=== PATIENT | female | born 1985 | race African-American/Black ===

== ENCOUNTER → 2020-10-10 | Outpatient (CLI) | payer BC ==
[2020-10-04 12:26] VITALS: BP 163/93
[~2020-10-10] MED LIST: OXYC1TAB15 PO
[2020-10-10 08:16] LABS: BILIRUBIN,URINE NEGATIVE (NEG); CLARITY,URINE CLEAR; COLOR,URINE YELLOW; NITRITE,URINE NEGATIVE (NEG); PROTEIN,URINE 100 mg/dL (NEG-TRACE); UROBILINOGEN,URINE 0.2 mg/dL (0.2 mg/dL)
[2020-10-10 08:19] LABS: CREATININE,RANDOM URINE 76.9 mg/dL (Not Establ.)
--- NOTE | 2020-10-10 08:27 | RAD ---
EXAMINATION: US RENAL BILAT INDICATION: Renal failure. COMPARISON: None TECHNIQUE: Grayscale and limited color Doppler evaluation of the kidneys and bladder was performed. FINDINGS: RIGHT KIDNEY: MEASURES: 9.5 x 5.3 x 5.1 cm PARENCHYMA: Diffuse cortical echogenicity with loss of normal corticomedullary differentiation. No di screte mass identified. COLLECTING SYSTEM: No hydronephrosis. LEFT KIDNEY: MEASURES: 9.9 x 4.3 x 6.9 cm. PARENCHYMA: Diffuse cortical echogenicity with loss of normal corticomedullary differentiation. There is a 2.8 x 2.8 cm avascular hypoechoic well-defined lesion with internal echoes and posterior acoust ic enhancement seen in the midpole. Additional, 0.9 cm simple appearing cyst in the midpole COLLECTING SYSTEM: No hydronephrosis URINARY BLADDER: Unremarkable IMPRESSION: 1. Diffuse bilateral cortical echogenicity with loss of normal corticomedullary differentiation, cons istent with chronic medical renal disease. No hydronephrosis in either kidney. 2. Avascular 2.8 cm hypoechoic left renal lesion with internal echoes and posterior acoustic enhancem ent,, suggesting of a mildly complex cyst. Recommend further evaluation with either CT or MRI renal p rotocol. Electronically signed by: Fab Mauro MD (10/10/2020 8:24 AM) [id number]
[2020-10-10 08:49] LABS: ALBUMIN 3.7 g/dL (3.4-5.0); CALCIUM 8.4 mg/dL (8.5-10.1); CREATININE 4.4 mg/dL (0.6-1.0); GFR 13.7; PHOSPHORUS 5.7 mg/dL (2.6-4.7); POTASSIUM 4.8 mmol/L (3.5-5.1); URIC ACID 6.4 mg/dL (2.6-6.0)
[2020-10-10 08:54] LABS: RBC,URINE OCC /HPF (0-2)
[2020-10-10 08:55] LABS: BACTERIA,URINE FEW /HPF (0-FEW)
[2020-10-10 10:45] LABS: BASO # 0.1 x10^3/uL (0.0-0.2); BASO % 1 % (0-3); EOS # 0.1 x10^3/uL (0.0-0.7); EOS % 2 % (0-3); HEMATOCRIT 23.1 % (36.0-47.0); HEMOGLOBIN 7.1 g/dL (12.0-15.5); LYMPH # 1.5 x10^3/uL (1.0-4.8); LYMPH % 23 % (24-48); MEAN CORPUSCULAR HEMOGLOBIN 19 pg (25-35); MEAN CORPUSCULAR HGB CONC 31 g/dL (31-37); MEAN CORPUSCULAR VOLUME 63 fL (79-100); MONO # 0.5 x10^3/uL (0.0-1.1); MONO % 8 % (0-9); NEUT # 4.3 x10^3/uL (1.8-7.7); NEUT % 67 % (31-73); PLATELET COUNT 455 x10^3/uL (140-400); RED BLOOD COUNT 3.66 x10^6/uL (3.50-5.40); RED CELL DISTRIBUTION WIDTH 27.7 % (11.5-14.5); WHITE BLOOD COUNT 6.5 x10^3/uL (4.0-11.0)
[2020-10-10 13:10] LABS: ANISOCYTOSIS MARKED; HYPOCHROMIA MARKED; MICROCYTOSIS MARKED; PLT ESTIMATE INCREASED (ADEQUATE)
[2020-10-10 21:09] LABS: CREAT RD UR 73.5 mg/dL (Not Estab.); MICROALB RD UR 676.1 ug/mL (Not Estab.)
== END ==
LOC: US 08:41
PROVIDERS: ATTEND Family Medicine
DX: D64.9 Anemia, unspecified (principal); N28.9 Disorder of kidney and ureter, unspecified
CPT/HCPCS: 36415; 76770; 80069; 81001; 82043; 82570; 82728; 83540; 83550; 84156; 84550; 85025; 87086

== ENCOUNTER → 2020-10-28 | Outpatient (CLI) | payer BC ==
[2020-10-04 12:26] VITALS: BP 163/93
[2020-10-28 13:21] LABS: BASO % 1 % (0-3); EOS # 0.1 x10^3/uL (0.0-0.7); EOS % 1 % (0-3); HEMATOCRIT 26.7 % (36.0-47.0); HEMOGLOBIN 8.2 g/dL (12.0-15.5); LYMPH # 1.1 x10^3/uL (1.0-4.8); LYMPH % 15 % (24-48); MEAN CORPUSCULAR HEMOGLOBIN 22 pg (25-35); MEAN CORPUSCULAR HGB CONC 31 g/dL (31-37); MEAN CORPUSCULAR VOLUME 71 fL (79-100); MONO # 0.5 x10^3/uL (0.0-1.1); MONO % 7 % (0-9); NEUT # 5.3 x10^3/uL (1.8-7.7); NEUT % 76 % (31-73); PLATELET COUNT 404 x10^3/uL (140-400); RED BLOOD COUNT 3.78 x10^6/uL (3.50-5.40); RED CELL DISTRIBUTION WIDTH 36.5 % (11.5-14.5); WHITE BLOOD COUNT 6.9 x10^3/uL (4.0-11.0)
[2020-10-28 13:38] LABS: CREATININE 4.2 mg/dL (0.6-1.0); GFR 14.5; POTASSIUM 4.9 mmol/L (3.5-5.1)
[2020-10-28 13:55] LABS: ALBUMIN 3.7 g/dL (3.4-5.0); ALBUMIN/GLOBULIN RATIO 1.1 (1.0-1.7); MAGNESIUM 2.2 mg/dL (1.8-2.4); TOTAL BILIRUBIN 0.3 mg/dL (0.2-1.0); TOTAL PROTEIN 7.2 g/dL (6.4-8.2)
[2020-10-29 14:14] LABS: KAPPA FREE 112.9 mg/L (3.3-19.4); KAPPA LAMBDA RATIO 1.43 (0.26-1.65); LAMBDA FREE 78.7 mg/L (5.7-26.3)
[2020-10-31 15:28] LABS: IMMUNOGLOBULIN A 248 mg/dL (87-352); IMMUNOGLOBULIN G 1261 mg/dL (586-1602); IMMUNOGLOBULIN M 127 mg/dL (26-217)
[2020-10-31 17:09] LABS: ALBUM 3.4 g/dL (2.9-4.4); ALPHA 1 0.2 g/dL (0.0-0.4); ALPHA 2 0.7 g/dL (0.4-1.0); GAMMA 1.4 g/dL (0.4-1.8); PROTEIN TOTAL 6.6 g/dL (6.0-8.5); SPEP AG RATIO 1.1 (0.7-1.7)
[2020-11-01 06:40] LABS: CARDIOLIPIN ANTIBODIES SEE SEPARATE REPORT; LUPUS ANTICOAGULANT SEE SEPARATE REPORT
[2020-11-05 20:09] LABS: METHYLMALONIC ACID 297 nmol/L (0-378)
== END ==
LOC: ONCLAB 12:40
PROVIDERS: ATTEND Internal Medicine Hematology & Oncology
DX: D50.9 Iron deficiency anemia, unspecified (principal); N18.5 Chronic kidney disease, stage 5
CPT/HCPCS: 36415; 80053; 82607; 82668; 82728; 82746; 82784; 83010; 83090; 83520; 83540; 83550; 83615; 83735; 83921; 84165; 85025; 85045; 85610; 86147; 86334

== ENCOUNTER → 2020-11-04 | Outpatient (CLI) | payer BC ==
[2020-10-04 12:26] VITALS: BP 163/93
[2020-11-04 11:07] LABS: BASO % 1 % (0-3); EOS # 0.1 x10^3/uL (0.0-0.7); EOS % 2 % (0-3); HEMATOCRIT 29.7 % (36.0-47.0); HEMOGLOBIN 9.3 g/dL (12.0-15.5); LYMPH % 16 % (24-48); MEAN CORPUSCULAR HEMOGLOBIN 23 pg (25-35); MEAN CORPUSCULAR HGB CONC 31 g/dL (31-37); MEAN CORPUSCULAR VOLUME 74 fL (79-100); MONO # 0.4 x10^3/uL (0.0-1.1); MONO % 6 % (0-9); NEUT # 4.6 x10^3/uL (1.8-7.7); NEUT % 75 % (31-73); PLATELET COUNT 351 x10^3/uL (140-400); RED BLOOD COUNT 3.99 x10^6/uL (3.50-5.40); RED CELL DISTRIBUTION WIDTH 35.7 % (11.5-14.5)
[2020-11-04 12:18] LABS: ANISOCYTOSIS MOD; MICROCYTOSIS SLIGHT; PLT ESTIMATE ADEQUATE (ADEQUATE)
== END ==
LOC: ONCLAB 09:57
PROVIDERS: ATTEND Internal Medicine Hematology & Oncology
DX: N18.5 Chronic kidney disease, stage 5 (principal); E61.1 Iron deficiency; Z87.59 Personal history of other complications of pregnancy, childbirth and the puerperium
CPT/HCPCS: 36415; 85025; 88184; 88185

== ENCOUNTER → 2020-12-02 | Outpatient (CLI) | payer BC ==
[2020-10-04 12:26] VITALS: BP 163/93
[2020-12-02 08:17] LABS: BASO % 1 % (0-3); EOS # 0.1 x10^3/uL (0.0-0.7); EOS % 2 % (0-3); HEMATOCRIT 32.7 % (36.0-47.0); HEMOGLOBIN 10.3 g/dL (12.0-15.5); LYMPH # 1.2 x10^3/uL (1.0-4.8); LYMPH % 24 % (24-48); MEAN CORPUSCULAR HEMOGLOBIN 25 pg (25-35); MEAN CORPUSCULAR HGB CONC 32 g/dL (31-37); MEAN CORPUSCULAR VOLUME 79 fL (79-100); MONO # 0.4 x10^3/uL (0.0-1.1); MONO % 8 % (0-9); NEUT # 3.2 x10^3/uL (1.8-7.7); NEUT % 64 % (31-73); PLATELET COUNT 279 x10^3/uL (140-400); RED BLOOD COUNT 4.14 x10^6/uL (3.50-5.40); RED CELL DISTRIBUTION WIDTH 27.1 % (11.5-14.5)
[2020-12-02 11:02] LABS: ANISOCYTOSIS MOD; PLT ESTIMATE ADEQUATE (ADEQUATE)
[2020-12-02 11:03] LABS: OVALOCYTES FEW; POLYCHROMASIA SLIGHT; TARGET CELLS OCC; TEAR DROP CELLS FEW
== END ==
LOC: ONCLAB 07:56
PROVIDERS: ATTEND Internal Medicine Hematology & Oncology
DX: D64.9 Anemia, unspecified (principal)
CPT/HCPCS: 36415; 82728; 83540; 83550; 85025

== ENCOUNTER → 2020-12-12 | Outpatient (CLI) | payer BC ==
[2020-10-04 12:26] VITALS: BP 163/93
--- NOTE | 2020-12-12 18:04 | RAD ---
INDICATION: Reason: Menorrhagia; Anemia / Spl. Instructions: / History: COMPARISON: None. TECHNIQUE: Grayscale and color ultrasound images uterus and adnexa. Transabdominal and transvaginal images obtained. Transvaginal images were needed to better visualize structures that were limited on transabdominal imaging. FINDINGS: Uterus: 87 x 44 x 54 mm. 2 mm endometrial stripe. Right Ovary: 21 x 13 x 20 mm. Left Ovary: 30 x 22 x 15 mm. Vascular flow identified to bilateral ovaries. Ovarian follicles. Nabothian cysts. Multiple solid-appearing lesions are identified within the myometrium. For example these measure up t o about 14 mm are seen both anteriorly and posteriorly. IMPRESSION: * Multiple small suspected uterine fibroids. Electronically signed by: Chandler Ortiz MD (12/12/2020 6:02 PM) [id number]
== END ==
LOC: US 15:09
PROVIDERS: ATTEND Obstetrics & Gynecology
DX: N88.8 Other specified noninflammatory disorders of cervix uteri (principal); D64.9 Anemia, unspecified; N92.0 Excessive and frequent menstruation with regular cycle
CPT/HCPCS: 76830; 76856

== ENCOUNTER → 2021-01-13 | Outpatient (CLI) | payer BC ==
[2020-10-04 12:26] VITALS: BP 163/93
[~2021-01-13] MED LIST changes: +ASCO500C PO; +CARV12.511 PO; +ERGO500089 PO; +FERR325T14 PO; +HYDR-2869 PO; +LOSA25TA54 PO; +NORE5TAB3 PO; +PNV1TABL25 PO
[2021-01-13 08:33] LABS: BASO % 1 % (0-3); EOS # 0.1 x10^3/uL (0.0-0.7); EOS % 2 % (0-3); LYMPH # 1.1 x10^3/uL (1.0-4.8); LYMPH % 22 % (24-48); MEAN CORPUSCULAR HEMOGLOBIN 27 pg (25-35); MEAN CORPUSCULAR HGB CONC 32 g/dL (31-37); MEAN CORPUSCULAR VOLUME 82 fL (79-100); MONO # 0.4 x10^3/uL (0.0-1.1); MONO % 7 % (0-9); NEUT # 3.4 x10^3/uL (1.8-7.7); NEUT % 68 % (31-73); PLATELET COUNT 274 x10^3/uL (140-400); RED BLOOD COUNT 4.13 x10^6/uL (3.50-5.40); RED CELL DISTRIBUTION WIDTH 14.3 % (11.5-14.5)
[2021-01-13 08:48] LABS: CALCIUM 8.5 mg/dL (8.5-10.1); GFR 15.3; POTASSIUM 5.4 mmol/L (3.5-5.1)
[2021-01-13 09:07] LABS: ALBUMIN 3.4 g/dL (3.4-5.0); ALBUMIN/GLOBULIN RATIO 0.9 (1.0-1.7); TOTAL BILIRUBIN 0.3 mg/dL (0.2-1.0); TOTAL PROTEIN 7.1 g/dL (6.4-8.2)
== END ==
LOC: ONCLAB 08:14
PROVIDERS: ATTEND Internal Medicine Hematology & Oncology
DX: E61.1 Iron deficiency (principal); N18.5 Chronic kidney disease, stage 5
CPT/HCPCS: 36415; 80053; 82728; 83540; 83550; 83615; 85025

== ENCOUNTER → 2021-01-18 | Outpatient (CLI) | payer BC ==
[2020-10-04 12:26] VITALS: BP 163/93
--- NOTE | 2021-01-18 14:35 | NUR ---
CALLED DR CORREIA'S OFFICE TO NOTIFY PATIENT IS COVID POSITIVE. NOTIFIED THE PATIENT OF RESULTS. INSTRUCTED PATIENT TO QUARANTINE FOR 2 WEEKS AND TO NOTIFY HER PRIMARY DR BUT NOT TO GO INTO THE OFFICE. SURGERY TO BE POSTPONED FOR 30 DAYS (IF SHE REMAINS ASYMPTOMATIC) FROM DATE OF TESTING WITH NO RETESTING FOR 90 DAYS. PATIENT IS AWARE DR CORREIA'S OFFICE TO DO THE RESCHEDULING.
== END ==
LOC: LAB 08:55
PROVIDERS: ATTEND Obstetrics & Gynecology
DX: Z01.812 Encounter for preprocedural laboratory examination (principal); U07.1 COVID-19
CPT/HCPCS: U0003; U0005

== ENCOUNTER 2021-02-23 07:27 | Day surgery (SDC) | payer BC ==
[~2021-02-23] VITALS: Ht 170.2 cm; Wt 79.0 kg
[~2021-02-23 07:27] MED LIST changes: +HYDROmorphone 2 MG/ML VIAL IVP PRN; +IV RINGERS,LACTATED 1000ML 1,000 ML IV SCH; +ceFAZolin SODIUM IV Push 1 GM VIAL. IVP PRN; +fentaNYL PF VIAL 100 MCG/2 ML VIAL IVP PRN
[2021-02-23 07:58] VITALS: BP 144/90
[2021-02-23 08:05] LABS: BASO % 1 % (0-3); EOS # 0.1 x10^3/uL (0.0-0.7); EOS % 2 % (0-3); HEMATOCRIT 34.6 % (36.0-47.0); HEMOGLOBIN 11.3 g/dL (12.0-15.5); LYMPH # 1.1 x10^3/uL (1.0-4.8); LYMPH % 23 % (24-48); MEAN CORPUSCULAR HEMOGLOBIN 27 pg (25-35); MEAN CORPUSCULAR HGB CONC 33 g/dL (31-37); MEAN CORPUSCULAR VOLUME 83 fL (79-100); MONO # 0.4 x10^3/uL (0.0-1.1); MONO % 9 % (0-9); NEUT # 3.2 x10^3/uL (1.8-7.7); NEUT % 66 % (31-73); PLATELET COUNT 286 x10^3/uL (140-400); RED BLOOD COUNT 4.15 x10^6/uL (3.50-5.40); RED CELL DISTRIBUTION WIDTH 14.6 % (11.5-14.5); WHITE BLOOD COUNT 4.9 x10^3/uL (4.0-11.0)
[2021-02-23] MEDS ORDERED: IV NORMAL SALINE 1000ML BAG 1,000 ML IV ONE (08:15)
[2021-02-23 08:19] LABS: CALCIUM 8.5 mg/dL (8.5-10.1); CREATININE 3.8 mg/dL (0.6-1.0); GFR 16.2; POTASSIUM 4.5 mmol/L (3.5-5.1)
[2021-02-23] MEDS ORDERED: MIDAZOLAM HCL/PF 2 MG/2 ML VIAL. ONE (08:32)
[2021-02-23] MEDS ORDERED: fentaNYL PF VIAL 100 MCG/2 ML VIAL ONE ×2 (08:32→09:32)
[2021-02-23] MEDS ORDERED: DEXAMETHASONE SOD PHOS 4 MG/ML VIAL ONE (09:01)
[2021-02-23] MEDS ORDERED: PROPOFOL 10 MG/ML (20ML) VIAL. IV ONE (09:01)
[2021-02-23] MEDS ORDERED: ONDANSETRON PF 4 MG/2 ML VIAL. ONE (09:01)
[2021-02-23] MEDS ORDERED: LIDOCAINE 2% PF 5 ML VIAL. ONE (09:01)
--- NOTE | 2021-02-23 09:24 | PDOC ---
BRIEF OPERATIVE NOTE Date: Feb 23, 2021 Pre-Op Diagnosis 1. Menorrhagia 2. Dysmenorrhea 3. Fibroids Post-Op Diagnosis Same Procedure Performed Endometrial Ablation Surgeon Dr. Justin Anesthesia Type: General Blood Loss 10 ml Specimens Obtained none Findings enlarged, fibroid uterus Complications none Operative Note see dictation ARMANDO JUSTIN Jr, MD Feb 23, 2021 09:24
[2021-02-23] MEDS ORDERED: SEVOFLURANE 31 TO 60 MINUTES. IH ONE (09:25)
[2021-02-23] MEDS ORDERED: OXYC1TAB15 PO (09:26)
--- NOTE | 2021-02-23 09:28 | DISCH ---
DISCHARGE INSTRUCTIONS Condition on Discharge Condition on Discharge: Stable Activity After Discharge Activity Instructions for Disc: Avoid exertion Bathing Instructions: Shower-keep dressing dry Lifting Instructions after Dis: No heavy lifting, No pulling or pushing Driving Instructions after Dis: Do not drive today Weight Bearing Status after Di: Non weight bearing Diet after Discharge Diet after Discharge: Regular Contacting the after DC Call your doctor for: Concerns you may have Follow-Up Follow up with: Dr. Justin in 1 week Treatment/Equipment after DC Adaptive Equipment Issued: None ARMANDO JUSTIN Jr, MD Feb 23, 2021 09:28
[2021-02-23] MEDS: fentaNYL PF VIAL 100 MCG/2 ML VIAL IVP PRN ×2 (09:36→09:45)
--- NOTE | 2021-02-23 09:36 | OP ---
DATE OF SURGERY: 02/23/2021 PREOPERATIVE DIAGNOSES: 1. Menorrhagia. 2. Dysmenorrhea. 3. Fibroids. POSTOPERATIVE DIAGNOSES: 1. Menorrhagia. 2. Dysmenorrhea. 3. Fibroids.. PROCEDURE: Endometrial ablation with NovaSure device. SURGEON: Dr. Justin. ANESTHESIA: GETA. ESTIMATED BLOOD LOSS: 10 mL COMPLICATIONS: None. FINDINGS: A large fibroid uterus. SUMMARY: A 36-year-old female with long history of fibroid uterus with heavy painful bleeding, unresponsive to medical treatment. The patient was counseled on risks, benefits, and expectation of endometrial ablation and voiced clear understanding to proceed. DESCRIPTION OF PROCEDURE: The patient was taken to surgery suite and placed in dorsal lithotomy position, was prepped with Betadine solution for vaginal prep and draped in sterile fashion. After adequate anesthesia, weighted speculum and curved Edgard placed vaginally and the anterior lip of the cervix grasped with single tooth tenaculum. The uterus was sounded to 10 cm in length. The Hegar dilators were used to dilate the cervix up to size 6. The NovaSure wand was then placed. The measurements utilized were a length of 6.5 cm+ and a width of 4.5 cm. We then proceeded with NovaSure device cycle in which the ablation took less than 60 seconds. The wand was then removed. Single tooth tenaculum and weighted speculum was removed. The patient tolerated the procedure well and was taken to recovery room in stable condition. Sponge and needle count correct x 3. ADELA/JOSEE DR: Endy TID: [id number]
[2021-02-23] MEDS ORDERED: oxyCODONE/APAP 5/325 1 TAB TABLET PO ONE (10:00)
[2021-02-23] MEDS ORDERED: MORPHINE SULFATE 2 MG/ML INJ. ONE (10:09)
[2021-02-23] MEDS: MORPHINE SULFATE 2 MG/ML INJ. IVP PRN ×2 (10:12→10:21)
[2021-02-23] MEDS: PROCHLORPERAZINE 10 MG/2 ML VIAL. IVP PRN ×2 (10:20→10:36)
[2021-02-23] MEDS ORDERED: MEPERIDINE PF 25 MG/ML VIAL. ONE (10:40)
[2021-02-23] MEDS ORDERED: MEPERIDINE PF 25 MG/ML VIAL. IV ONE (10:45)
[2021-02-23 11:10] VITALS: BP 143/101
[2021-02-23] MEDS ORDERED: hydrALAZINE 20 MG/ML VIAL. IVP ONE (11:15)
== END 2021-02-23 11:55 | disposition home or self-care (01) ==
LOC: SURG 07:27
PROVIDERS: ATTEND Obstetrics & Gynecology
DX: N94.6 Dysmenorrhea, unspecified (principal); D25.9 Leiomyoma of uterus, unspecified; N92.0 Excessive and frequent menstruation with regular cycle; I12.9 Hypertensive chronic kidney disease with stage 1 through stage 4 chronic kidney disease, or unspecified chronic kidney disease; N18.9 Chronic kidney disease, unspecified; F32.9 Major depressive disorder, single episode, unspecified; Z99.2 Dependence on renal dialysis; Z79.899 Other long term (current) drug therapy; Z98.890 Other specified postprocedural states; Z72.89 Other problems related to lifestyle
CPT/HCPCS: 36415; 58563; 80048; 81025; 85025; A4930; J0360; J0690; J0780; J1100; J2175; J2250; J2270; J2405; J2704; J3010

== ENCOUNTER → 2021-05-15 | Outpatient (CLI) | payer BC ==
[~2021-05-15] MED LIST changes: -HYDROmorphone 2 MG/ML VIAL IVP PRN; -IV RINGERS,LACTATED 1000ML 1,000 ML IV SCH; -ceFAZolin SODIUM IV Push 1 GM VIAL. IVP PRN; -fentaNYL PF VIAL 100 MCG/2 ML VIAL IVP PRN
[2021-05-15 08:51] LABS: BASO % 1 % (0-3); EOS # 0.1 x10^3/uL (0.0-0.7); EOS % 2 % (0-3); HEMOGLOBIN 12.6 g/dL (12.0-15.5); LYMPH # 1.1 x10^3/uL (1.0-4.8); LYMPH % 24 % (24-48); MEAN CORPUSCULAR HEMOGLOBIN 27 pg (25-35); MEAN CORPUSCULAR HGB CONC 32 g/dL (31-37); MEAN CORPUSCULAR VOLUME 86 fL (79-100); MONO # 0.4 x10^3/uL (0.0-1.1); MONO % 8 % (0-9); NEUT # 3.2 x10^3/uL (1.8-7.7); NEUT % 66 % (31-73); PLATELET COUNT 286 x10^3/uL (140-400); RED BLOOD COUNT 4.64 x10^6/uL (3.50-5.40); RED CELL DISTRIBUTION WIDTH 15.5 % (11.5-14.5); WHITE BLOOD COUNT 4.9 x10^3/uL (4.0-11.0)
[2021-05-15 09:06] LABS: CALCIUM 8.5 mg/dL (8.5-10.1); CREATININE 3.5 mg/dL (0.6-1.0); GFR 17.8; POTASSIUM 4.4 mmol/L (3.5-5.1)
[2021-05-15 09:24] LABS: ALBUMIN 3.4 g/dL (3.4-5.0); ALBUMIN/GLOBULIN RATIO 0.9 (1.0-1.7); TOTAL BILIRUBIN 0.2 mg/dL (0.2-1.0); TOTAL PROTEIN 7.4 g/dL (6.4-8.2)
== END ==
LOC: ONCLAB 08:01
PROVIDERS: ATTEND Internal Medicine Hematology & Oncology
DX: D50.0 Iron deficiency anemia secondary to blood loss (chronic) (principal)
CPT/HCPCS: 36415; 80053; 82728; 83540; 83550; 85025

== ENCOUNTER → 2021-06-27 | Outpatient (CLI) | payer BC ==
--- NOTE | 2021-06-27 10:16 | RAD ---
EXAM: XR CHEST 1V 06/27/2021 9:47 AM CLINICAL INDICATION: Chronic kidney disease stage V, end-stage renal disease COMPARISON: None TECHNIQUE: AP upright view of the chest FINDINGS: The heart and mediastinum are normal. Lungs are well-expanded and clear. No consolidatio n, pleural effusion, or pneumothorax. Pulmonary vascularity is normal. The thoracic skeleton is int act. IMPRESSION: Normal chest radiograph. Electronically signed by: Mary Ortez MD (06/27/2021 10:14 AM) [id number]
== END ==
LOC: RAD 09:33
PROVIDERS: ATTEND Internal Medicine Nephrology
DX: I12.0 Hypertensive chronic kidney disease with stage 5 chronic kidney disease or end stage renal disease (principal)
CPT/HCPCS: 71045

== ENCOUNTER → 2021-09-13 | Outpatient (CLI) | payer BC ==
[2021-09-13 10:44] LABS: BASO % 1 % (0-3); EOS # 0.1 x10^3/uL (0.0-0.7); EOS % 2 % (0-3); HEMATOCRIT 37.7 % (36.0-47.0); HEMOGLOBIN 12.3 g/dL (12.0-15.5); LYMPH % 19 % (24-48); MEAN CORPUSCULAR HEMOGLOBIN 27 pg (25-35); MEAN CORPUSCULAR HGB CONC 33 g/dL (31-37); MEAN CORPUSCULAR VOLUME 84 fL (79-100); MONO # 0.5 x10^3/uL (0.0-1.1); MONO % 10 % (0-9); NEUT # 3.6 x10^3/uL (1.8-7.7); NEUT % 69 % (31-73); PLATELET COUNT 273 x10^3/uL (140-400); RED CELL DISTRIBUTION WIDTH 14.2 % (11.5-14.5); WHITE BLOOD COUNT 5.3 x10^3/uL (4.0-11.0)
[2021-09-13 10:45] LABS: CALCIUM 8.6 mg/dL (8.5-10.1); CREATININE 5.7 mg/dL (0.6-1.0); GFR 10.1; POTASSIUM 3.7 mmol/L (3.5-5.1)
[2021-09-13 11:03] LABS: ALBUMIN 2.5 g/dL (3.4-5.0); ALBUMIN/GLOBULIN RATIO 0.6 (1.0-1.7); TOTAL BILIRUBIN 0.3 mg/dL (0.2-1.0); TOTAL PROTEIN 6.6 g/dL (6.4-8.2)
== END ==
LOC: ONCLAB 10:07
PROVIDERS: ATTEND Internal Medicine Hematology & Oncology
DX: N18.5 Chronic kidney disease, stage 5 (principal)
CPT/HCPCS: 36415; 80053; 82728; 83540; 83550; 85025